=== PATIENT | female | born 1970 | race Caucasian/White ===

== ENCOUNTER 2018-11-04 11:13 | Emergency (ER) | payer BC ==
[2018-11-04 11:18] VITALS: BMI 26.6
[2018-11-04 11:23] VITALS: TEMP 97.1
--- NOTE | 2018-11-04 11:32 | PDOC ---
History of Present Illness <Izaiah Harden - Last Filed: 11/04/18 15:58> - General History Source: Patient Exam Limitations: No Limitations - History of Present Illness Initial Comments: 11/04/18 11:48 48 year old female with PMH GERD, hemorrhoids presented to ED for nausea/ vomiting/diarrhea since 0200 this morning. She stated that she ate She[employer] Pie last, and two other people who ate it have similar symptoms. Pt admitted to sweats/chills, epigastric burning. She stated she has vomited "too numerous times to count" and had diarrhea "too numerous times to count". She admitted to small amount of blood in her diarrhea, which is the same amount she always has with her hemorrhoids. Pt denied recent travel out of the country. Allergies: NKDA <Marina Tillman - Last Filed: 11/04/18 16:10> - General Chief Complaint: Nausea/Vomiting Stated Complaint: Nausea/Vomiting Time Seen by Provider: 11/04/18 11:32 Past History <Izaiah Harden - Last Filed: 11/04/18 15:58> - Past Medical History COPD: No GI Disorders: Yes (GERD) - Suicide/Smoking/Psychosocial Hx Smoking History: Never smoked <Marina Tillman - Last Filed: 11/04/18 16:10> - Past Medical History Allergies/Adverse Reactions: Allergies Allergy/AdvReac Type Severity Reaction Status Date / Time No Known Allergies Allergy Verified 11/04/18 11:15 Home Medications: Ambulatory Orders Famotidine [Pepcid] 40 mg PO DAILY 11/04/18 Naproxen 500 mg PO BID PRN 11/04/18 Ondansetron [Zofran Odt -] 4 mg SL TID #9 od.tablet 11/04/18 Review of Systems - Review of Systems Able to Perform ROS?: Yes Comments:: 11/04/18 12:00 General: denied fever, chills, generalized weakness. HEENT: denied sore throat, rhinorrhea, ear pain. Heart: denied chest pain, palpitations, syncope, diaphoresis. Respiratory: denied shortness of breath, cough, sputum production, hemoptysis. Abdomen: abdominal pain, nausea, vomiting, diarrhea. denied constipation, blood in stool. : denied dysuria, increased urinary frequency, hematuria, urinary incontinence , flank pain. Back: denied back pain. Musculoskeletal: denied joint pain, muscle pain, joint swelling. Neurological: denied headache, dizziness, numbness, tingling, weakness. Skin: denied rash, laceration, abrasion. <PrimoMarina - Last Filed: 11/04/18 16:10> *Physical Exam - Vital Signs Last Vital Signs Temp Pulse Resp BP Pulse Ox 97.1 F L 98 H 18 132/77 100 11/04/18 11:16 11/04/18 15:38 11/04/18 15:38 11/04/18 15:38 11/04/18 11:16 <DereckIzaiah mcfarland - Last Filed: 11/04/18 15:58> - Vital Signs Last Vital Signs Temp Pulse Resp BP Pulse Ox 97.1 F L 81 18 136/70 100 11/04/18 11:16 11/04/18 11:16 11/04/18 11:16 11/04/18 11:16 11/04/18 11:16 - Physical Exam Comments: 11/04/18 12:00 Constitutional: Well-nourished, Well-developed, appearing stated age. HEENT: head is normocephalic, atraumatic. EOMI. PERRLA. Neck: supple. Full ROM. Heart: regular rhythm. no murmurs, rubs or gallops. Lungs: clear to auscultation bilaterally. no crackles, rhonchi or wheezing. no stridor. Abdomen: soft, flat. tenderness to palpation of epigastrium and RUQ. murphys negative. normal bowel sounds. no rebound, guarding, masses. Extremities: peripheral pulses intact. no lower extremity edema. Neurological: CN 2-12 grossly intact. moves all four extremities. Psych: awake, alert, oriented x3. follows commands. answers questions appropriately. <Marina Tillman - Last Filed: 11/04/18 16:10> ED Treatment Course - LABORATORY CBC & Chemistry Diagram: 11/04/18 11:38 11/04/18 11:38 - ADDITIONAL ORDERS Additional order review: Laboratory Results 11/04/18 11/04/18 11:38 11:38 Sodium 140 Potassium 3.7 Chloride 106 Carbon Dioxide 24 Anion Gap 10 BUN 14 Creatinine 0.7 Creat Clearance w eGFR 88.94 Random Glucose 139 H Calcium 9.8 Magnesium 1.9 Total Bilirubin 0.8 AST 19 ALT 30 Alkaline Phosphatase 121 H Total Protein 8.4 H Albumin 4.4 Lipase 131 Serum , Qual Negative 11/04/18 11:38 RBC 4.74 MCV 89.5 MCHC 34.4 RDW 12.5 MPV 8.9 Neutrophils % 88.3 H Lymphocytes % 9.1 Monocytes % 2.3 L Eosinophils % 0.0 Basophils % 0.3 - Medications Given in the ED: ED Medications Discontinued Medications Generic Name Dose Route Start Last Admin Trade Name Waleq PRN Reason Stop Dose Admin Al Hydroxide/Mg Hydroxide 30 ml 11/04/18 13:38 11/04/18 15:23 Mylanta Oral Suspension - PO 11/04/18 13:39 Not Given ONCE ONE Diphenhydramine HCl 25 mg 11/04/18 13:13 11/04/18 13:20 Benadryl Injection - IVPB 11/04/18 13:14 25 mg ONCE ONE Administration Famotidine/Sodium Chloride 20 mg in 50 mls @ 100 mls/hr 11/04/18 11:33 11:55 Pepcid 20 Mg Premixed Ivpb - IVPB 11/04/18 12:02 100 mls/hr ONCE ONE Administration Sodium Chloride 1,000 mls @ 1,000 mls/hr 11/04/18 11:33 11/04/18 11:45 Normal Saline - IV 11/04/18 12:32 1,000 mls/hr ASDIR STA Administration Metoclopramide HCl 10 mg 11/04/18 13:13 11/04/18 13:15 Reglan Injection - IVPB 11/04/18 13:14 10 mg ONCE ONE Administration Ondansetron HCl 4 mg 11/04/18 11:33 11/04/18 12:20 Zofran Injection IVPUSH 11/04/18 11:34 4 mg ONCE ONE Administration Sodium Chloride 1,000 ml 11/04/18 13:13 11/04/18 13:20 Normal Saline - IV 11/04/18 13:14 1,000 ml ONCE ONE Administration <Izaiah Harden - Last Filed: 11/04/18 15:58> - LABORATORY CBC & Chemistry Diagram: 11/04/18 11:38 11/04/18 11:38 <Marina Tillman - Last Filed: 11/04/18 16:10> Medical Decision Making - Medical Decision Making 11/04/18 11:59 48 year old female with above PMH presented to ED for nausea/vomiting/diarrhea/ epigastric pain. Initial Vital Signs Temp Pulse Resp BP Pulse Ox 97.1 F L 81 18 136/70 100 11/04/18 11:16 11/04/18 11:16 11/04/18 11:16 11/04/18 11:16 11/04/18 11:16 Afebrile. No tachycardia. No tachypnea. Mild hypertension. No hypoxia on room air. Labs ordered: CBC, CMP, lipase, mag Imaging ordered: none Medications ordered: pepcid, zofran 4 mg IV, normal saline bolus 1000 cc 11/04/18 12:38 CBC WBC 12.5 K/mm3 (4.0-10.0) H 11/04/18 11:38 RBC 4.74 M/mm3 (3.60-5.2) 11/04/18 11:38 Hgb 14.6 GM/dL (10.7-15.3) 11/04/18 11:38 Hct 42.4 % (32.4-45.2) 11/04/18 11:38 MCV 89.5 fl (80-96) 11/04/18 11:38 MCH 30.8 pg (25.7-33.7) 11/04/18 11:38 MCHC 34.4 g/dl (32.0-36.0) 11/04/18 11:38 RDW 12.5 % (11.6-15.6) 11/04/18 11:38 Plt Count 305 K/MM3 (134-434) 11/04/18 11:38 MPV 8.9 fl (7.5-11.1) 11/04/18 11:38 Absolute Neuts (auto) 11.0 K/mm3 (1.5-8.0) H 11/04/18 11:38 Neutrophils % 88.3 % (42.8-82.8) H 11/04/18 11:38 Lymphocytes % 9.1 % (8-40) 11/04/18 11:38 Monocytes % 2.3 % (3.8-10.2) L 11/04/18 11:38 Eosinophils % 0.0 % (0-4.5) 11/04/18 11:38 Basophils % 0.3 % (0-2.0) 11/04/18 11:38 Nucleated RBC % 0 % (0-0) 11/04/18 11:38 Mild leukocytosis. Left shift. No anemia. CMP Sodium 140 mmol/L (136-145) 11/04/18 11:38 Potassium 3.7 mmol/L (3.5-5.1) 11/04/18 11:38 Chloride 106 mmol/L (98-107) 11/04/18 11:38 Carbon Dioxide 24 mmol/L (21-32) 11/04/18 11:38 Anion Gap 10 MMOL/L (8-16) 11/04/18 11:38 BUN 14 mg/dL (7-18) 11/04/18 11:38 Creatinine 0.7 mg/dL (0.55-1.3) 11/04/18 11:38 Creat Clearance w eGFR 88.94 (>60) 11/04/18 11:38 Random Glucose 139 mg/dL (74-106) H 11/04/18 11:38 Calcium 9.8 mg/dL (8.5-10.1) 11/04/18 11:38 Magnesium 1.9 mg/dL (1.8-2.4) 11/04/18 11:38 Total Bilirubin 0.8 mg/dL (0.2-1) 11/04/18 11:38 AST 19 U/L (15-37) 11/04/18 11:38 ALT 30 U/L (13-61) 11/04/18 11:38 Alkaline Phosphatase 121 U/L (45-117) H 11/04/18 11:38 Total Protein 8.4 g/dl (6.4-8.2) H 11/04/18 11:38 Albumin 4.4 g/dl (3.4-5.0) 11/04/18 11:38 Lipase 131 U/L (73-393) 11/04/18 11:38 Serum , Qual Negative 11/04/18 11:38 No electrolyte abnormalities. No STORM. Mild elevation of ALP. Normal lipase. Serum testing negative. 11/04/18 13:37 Pt reassessed, reported last vomited x30 minutes ago. Pt reported improving epigastric burning. Pt given Benadryl and Reglan. 2nd normal saline 1000 cc bolus given. Pt given PO water challenge. 11/04/18 14:43 Pt failed PO challenge, actively vomiting at bedside. Abdominal examination: soft, nontender. flat. no rebound. Pt has been given three medications for nausea and still vomiting. Pt to be admitted for intractable nausea/vomiting. Labs ordered: influenza A/B 11/04/18 14:52 Hospitalist paged. 11/04/18 15:[address] Ma about the patient, who is to be admitted under observation. Pending admission. 11/04/18 16:01 Pt now tolerating PO. Pt to be discharged. <Marina Tillman - Last Filed: 11/04/18 16:10> *DC/Admit/Observation/Transfer - Discharge Dispostion Decision to Admit order: No <Izaiah Harden - Last Filed: 11/04/18 15:58> - Discharge Dispostion Decision to Admit order: No <Marina Tillman - Last Filed: 11/04/18 16:10> Diagnosis at time of Disposition: Nausea & vomiting Qualifiers: Vomiting type: unspecified Vomiting Intractability: non-intractable Qualified Code(s): R11.2 - Nausea with vomiting, unspecified - Discharge Dispostion Disposition: HOME Condition at time of disposition: Stable - Prescriptions Prescriptions: Ondansetron [Zofran Odt -] 4 mg SL TID #9 od.tablet - Referrals Referrals: Izaiah Fagan MD [Primary Care Provider] - - Patient Instructions Printed Discharge Instructions: DI for Vomiting -- Adult, DI for Gastritis, [place] Diet, GERD Diet Additional Instructions: You were seen today for nausea/vomiting/diarrhea. Your lab work showed a high white blood cell count, most likely from an infection from the food you ate. Follow up with your primary care doctor in 1-2 days to have this number re- checked. Take Tylenol over the counter for your pain. Take as advised on label. I have sent a prescription for Zofran to your pharmacy, pick it up today and take as advised on label. Drink lots of gatorade or pedialyte to stay hydrated and replenish the electrolytes you are losing in the diarrhea and vomit. Eat a bland diet: bread, rice, toast, applesauce, crackers. Advance your diet in 24 hours as tolerated. Foods to avoid that can irritate your stomach: fried foods, spicy foods, caffeine, coffee, tea, chocolate, tomato sauce, pizza, greasy food Medications to avoid that can irritate your stomach: ibuprofen, motrin, aleve, advil Return to the Emergency Department for vomiting despite Zofran use, increasing pain despite Tylenol use, vomiting blood, increasing amount of blood in stool, chest pain, shortness of breath, fever>103F with Tylenol use, fever>5 days or any other new, worsening or concerning symptoms. - Post Discharge Activity Forms/Work/School Notes: Back to Work
[2018-11-04] MEDS ORDERED: ONDANSETRON 4 MG/2 ML VIAL IVPUSH ONE (11:33)
[2018-11-04] MEDS ORDERED: FAMOTIDINE 20 MG/50 ML IVPB 20 MG/50 ML MG IVPB ONE ×2 (11:33→11:58)
[2018-11-04] MEDS ORDERED: SODIUM CHLORIDE 1,000 ML IV STA (11:33)
[2018-11-04] MEDS ORDERED: ONDANSETRON 4 MG/2 ML VIAL ONE (11:58)
[2018-11-04 12:04] LABS: BASO % 0.3 % (0-2.0); HEMATOCRIT 42.4 % (32.4-45.2); HEMOGLOBIN 14.6 GM/dL (10.7-15.3); LYMPH % 9.1 % (8-40); MCH 30.8 pg (25.7-33.7); MCHC 34.4 g/dl (32.0-36.0); MEAN CELL VOLUME 89.5 fl (80-96); MEAN PLT VOLUME 8.9 fl (7.5-11.1); MONO % 2.3 % (3.8-10.2); NEUT % 88.3 % (42.8-82.8); PLATELET COUNT 305 K/MM3 (134-434); RBC 4.74 M/mm3 (3.60-5.2); RDW 12.5 % (11.6-15.6); WHITE BLOOD COUNT 12.5 K/mm3 (4.0-10.0)
[2018-11-04 12:30] LABS: ALBUMIN 4.4 g/dl (3.4-5.0); ALK PHOS 121 U/L (45-117); ANION GAP 10 MMOL/L (8-16); BILIRUBIN,TOTAL 0.8 mg/dL (0.2-1); BLOOD UREA NITROGEN 14 mg/dL (7-18); CALCIUM 9.8 mg/dL (8.5-10.1); CHLORIDE 106 mmol/L (98-107); CO2 24 mmol/L (21-32); CREATININE 0.7 mg/dL (0.55-1.3); GLUCOSE,RANDOM 139 mg/dL (74-106); LIPASE 131 U/L (73-393); MAGNESIUM 1.9 mg/dL (1.8-2.4); POTASSIUM 3.7 mmol/L (3.5-5.1); SGOT/AST 19 U/L (15-37); SGPT/ALT 30 U/L (13-61); SODIUM 140 mmol/L (136-145); TOT PROT 8.4 g/dl (6.4-8.2)
--- NOTE | 2018-11-04 12:59 | PDOC ---
Documentation entered by Stefania Ovalle SCRIBE, acting as scribe for Izaiah Harden MD. Attending Attestation - Resident Resident Name: Marina Tillman - ED Attending Attestation I have performed the following: I have examined & evaluated the patient, The case was reviewed & discussed with the resident, I agree w/resident's findings & plan, Exceptions are as noted - HPI HPI: 11/04/18 12:29 The patient is a 48 year old female with a significant past medical history of GERD and hemorrhoids who presents to the emergency department with an onset of nausea, vomiting, and diarrhea since earlier today. The patient reports that she last ate some shepards pie last night and soon began to experience these symptoms. The patient also reports some diaphoretic episodes as well as epigastric burning sensation. She reports that other persons that ate the same thing have had similar symptoms as well. The patient denies any fever, or urinary symptoms. She denies any chest pain, shortness of breath, headache or dizziness. She denies any other complaints. - Physicial Exam PE: 11/04/18 13:14 Vitals: Triage vital signs reviewed General Appearance: No acute distress, well nourished, well developed Head: Atraumatic Chest Wall: Nontender Cardiac: Regular rate and rhythm, no murmurs, no rubs, no gallops Lungs: Clear to auscultation bilateral, good air movement bilaterally Abdomen: Soft, nondistended, normal bowel sounds, nontender to palpation Extremities: Full range of motion to all extremities, no cyanosis, clubbing, or edema Skin: Warm and dry, no rashes or lesions, no rash, no petechiae Neuro: AOX3; Cranial Nerves 2-12 grossly intact, Strength intact to all extremities, Sensation intact to all extremities, gait normal Psych: Normal mood, normal affect - Medical Decision Making 11/04/18 12:48 The patient is a 48 year old female with a significant past medical history of GERD and hemorrhoids who presents to the emergency department with an onset of nausea, vomiting, and diarrhea since earlier today. The patient will get IV meds for her symptoms and will be further evaluated. 48 years old with nausea vomiting diarrhea multiple episodes. Several people around her of had the same illness Status post IV fluids and antiemetics patient not tolerating fluids by mouth laboratory analysis grossly unremarkable History examination consistent with gastroenteritis Patient still with persistent nausea despite IV fluids episode Zofran Reglan and Benadryl and additional IV fluids ordered Reevaluation 240 Patient failed by mouth challenge still persistently vomiting despite multiple rounds of antiemetics We'll need to observe for IV hydration and further management. Reevaluation 4 PM patient now tolerating fluids by mouth asking to go home past by mouth challenge we'll cancel admission and discharge home we'll give patient note off from work for 2 days and discharge home prescription for Izaiah Leon MD: This documentation has been prepared by the Vasquez landa Collisia, SCRIBE, under my direction and personally reviewed by me in its entirety. I confirm that the documentation accurately reflects all work, treatment, procedures, and medical decision making performed by me.
--- NOTE | 2018-11-04 12:59 | PDOC ---
Documentation entered by Gilma Leigh SCRIBE, acting as scribe for Izaiah Harden MD. Izaiah Harden MD: This documentation has been prepared by the Reese landa Amanda, SCRIBE, under my direction and personally reviewed by me in its entirety. I confirm that the documentation accurately reflects all work, treatment, procedures, and medical decision making performed by me. Attending Attestation - Resident Resident Name: Marina Tillman - ED Attending Attestation I have performed the following: I have examined & evaluated the patient, The case was reviewed & discussed with the resident, I agree w/resident's findings & plan, Exceptions are as noted - HPI HPI: 11/07/18 15:52 Canceled see other chart - Physicial Exam PE: 11/07/18 15:52 Canceled see other chart - Medical Decision Making 11/07/18 15:52 Canceled see other chart
[2018-11-04] MEDS ORDERED: METOCLOPRAMIDE HCL INJECTION 10 MG/2 ML VIAL IVPB ONE (13:13)
[2018-11-04] MEDS ORDERED: SODIUM CHLORIDE 0.9% 1000 ML INFUS.BAG IV ONE (13:13)
[2018-11-04] MEDS ORDERED: METOCLOPRAMIDE HCL INJECTION 10 MG/2 ML VIAL ONE (13:20)
[2018-11-04] MEDS ORDERED: MAG HYDROX/AL HYDROX/SIMETH 30 ML UNIT-DOSE CUP PO ONE (13:38)
[2018-11-04 15:22] LABS: EPI CELLS 0.8 /HPF (0-5/HPF); PH,URINE 8.5 (5.0-8.0); URINE APPEARANCE CLOUDY; URINE BACTERIA 21.8 /hpf (NEGATIVE); URINE BILIRUBIN NEGATIVE (NEGATIVE); URINE CASTS 0 /lpf (0-8); URINE COLOR YELLOW; URINE GLUCOSE (UA) NEGATIVE (NEGATIVE); URINE KETONE 2+ (NEGATIVE); URINE LEUK ESTERASE NEGATIVE (NEGATIVE); URINE NITRITE NEGATIVE (NEGATIVE); URINE PROTEIN NEGATIVE (NEGATIVE); URINE RBC 7 /hpf (0-4); URINE UROBILINOGEN 0.2 mg/dL (0.2-1.0); URINE WBC 0 /hpf (0-5)
--- NOTE | 2018-11-04 15:27 | PN ---
Teaching Attending Note Name of Resident: Alma Gomez ATTENDING PHYSICIAN STATEMENT I saw and evaluated the patient. I reviewed the resident's note and discussed the case with the resident. I agree with the resident's findings and plan as documented with exceptions below. SUBJECTIVE: 48 yof with PMhx of GERD, haemorrhoids, was in her USOH till around 230 AM today when had sudden onset of vomiting and diarrhea. reports multiple episodes of ovmiting, initially food, then bilious non bloody, last 15 min ago in the ED. Also multiple scant watery stools, initially non bloody later with some BRBPR with blood on wipes. No diarrhea since in the hospital. Subjective chills but no fevers. Also c/o epigastric soreness that started after vomiting episodes otherwise no abdominal pain. Had galindo pie/rice/meatballs around 6 pm yesterday. No sick contacts, recent antibiotics or travel. Has long standing h/o GERD, and is advised outpatient GI follow up for EGD. Occasional Naproxen for abdominal cramps. Colonoscopy 1 year ago and intermittent BRPBR from her haemorrhoids. s/p reglan/famotidine/benadryl/Maalox in the ED. Symptoms improved, though ongoing vomiting and inablity to tolerate PO 12 point ROS done, neg except above. OBJECTIVE: Vital Signs Period Temp Pulse Resp BP Sys/Mcleod Pulse Ox Last 24 Hr 97.1 F 81 18 136/70 100 Intake & Output 11/01/18 11/02/18 11/03/18 11/04/18 23:59 23:59 23:59 23:59 Intake Total 1000 Balance 1000 Weight 160 lb GENERAL: Awake, alert, and fully oriented, in no acute distress. HEAD: Normal with no signs of trauma. EYES: Pupils equal, round and reactive to light, extraocular movements intact, sclera anicteric, conjunctiva clear. No lid lag. EARS, NOSE, THROAT: Ears normal, nares patent, oropharynx clear without exudates. Mildly dry skin and mucous membrane NECK: Normal range of motion, supple, no JVD LUNGS: Breath sounds equal, clear to auscultation bilaterally. No wheezes, and no crackles. No accessory muscle use. HEART: Regular rate and rhythm, normal S1 and S2 ABDOMEN: Soft, nontender throughout, no epigastric tenderness, not distended, normoactive bowel sounds, no guarding, no rebound, no masses. No hepatomegaly or splenomegaly appreciated. MUSCULOSKELETAL: Normal range of motion at all joints. No bony deformities or tenderness. No CVA tenderness. UPPER EXTREMITIES: 2+ pulses, warm, well-perfused. No cyanosis. No clubbing. No peripheral edema. LOWER EXTREMITIES: 2+ pulses, warm, well-perfused. No calf tenderness. No peripheral edema. NEUROLOGICAL: AAOx3, power 5/5, facial symmetry, tongue midlline, EOMI, Cranial nerves II-XII intact. Normal speech. Gait not observed PSYCHIATRIC: Cooperative. Good eye contact. Appropriate mood and affect. SKIN: Warm, dry, normal turgor, no rashes or lesions noted, normal capillary refill. Rectal: visible external haemorrhoids, mucoid stool law-rectal region, no gross blood, or active bleed from haemorrhoids Home Medications Medication Instructions Recorded Famotidine [Pepcid] 40 mg PO DAILY 11/04/18 Naproxen 500 mg PO BID PRN 11/04/18 Laboratory Results - last 24 hr 11/04/18 11/04/18 11/04/18 11:38 11:38 11:38 WBC 12.5 H RBC 4.74 Hgb 14.6 Hct 42.4 MCV 89.5 MCH 30.8 MCHC 34.4 RDW 12.5 Plt Count 305 MPV 8.9 Absolute Neuts (auto) 11.0 H Neutrophils % 88.3 H Lymphocytes % 9.1 Monocytes % 2.3 L Eosinophils % 0.0 Basophils % 0.3 Nucleated RBC % 0 Sodium 140 Potassium 3.7 Chloride 106 Carbon Dioxide 24 Anion Gap 10 BUN 14 Creatinine 0.7 Creat Clearance w eGFR 88.94 Random Glucose 139 H Calcium 9.8 Magnesium 1.9 Total Bilirubin 0.8 AST 19 ALT 30 Alkaline Phosphatase 121 H Total Protein 8.4 H Albumin 4.4 Lipase 131 Serum , Qual Negative Urine Color Urine Appearance Urine pH Ur Specific [place] Urine Protein Urine Glucose (UA) Urine Ketones Urine Blood Urine Nitrite Urine Bilirubin Urine Urobilinogen Ur Leukocyte Esterase Urine WBC (Auto) Urine RBC (Auto) Urine Casts (Auto) U Epithel Cells (Auto) Urine Bacteria (Auto) Influenza A (Rapid) Influenza B (Rapid) 04/16/19 04/16/19 14:32 15:01 WBC RBC Hgb Hct MCV MCH MCHC RDW Plt Count MPV Absolute Neuts (auto) Neutrophils % Lymphocytes % Monocytes % Eosinophils % Basophils % Nucleated RBC % Sodium Potassium Chloride Carbon Dioxide Anion Gap BUN Creatinine Creat Clearance w eGFR Random Glucose Calcium Magnesium Total Bilirubin AST ALT Alkaline Phosphatase Total Protein Albumin Lipase Serum , Qual Urine Color Yellow Urine Appearance Cloudy Urine pH 8.5 H Ur Specific [place] 1.019 Urine Protein Negative Urine Glucose (UA) Negative Urine Ketones 2+ H Urine Blood Trace Urine Nitrite Negative Urine Bilirubin Negative Urine Urobilinogen 0.2 Ur Leukocyte Esterase Negative Urine WBC (Auto) 0 Urine RBC (Auto) 7 Urine Casts (Auto) 0 U Epithel Cells (Auto) 0.8 Urine Bacteria (Auto) 21.8 Influenza A (Rapid) Negative Influenza B (Rapid) Negative ASSESSMENT AND PLAN: 48 yof with GERD, haemorrhoids, admitted with vomiting, diarrhea and BRBPR scant that followed diarrhea. -Nausea, vomiting, suspect food poisoning vs viral gastroenteritis given self- limiting course and already improved -Hematochezia, scant, followed diarrheas, suspect haemorrhoidal in the setting of diarrhea -GERD Plan: Clinically improved. Afebrile, benign abdominal exam. Supportive care IVF, zofran, PPI IV BID, maalox prn. Anusol cream/sitz baths. Monitor h/h. Stool studies if significant or persistent diarrhea. Hold off on abx. Readdress if fevers, ongoing bloody diarrhea, abdominal pain or new clinical concerns. PO clears, advance as tolerated Drug screen Routine EKG [id number], low risk, also given concerns of haemorrhoidal bleed, Dispo admit to obs, d/c in 24 hours if symptoms improved, tolerating diet and no new concerns. Plan discussed with patient in detail, all questions answered. Care co-ordinated with ED. Total admit time 55 min.
--- NOTE | 2018-11-04 16:33 | CONSULT ---
Consultation: REQUESTING PROVIDER: Dr Harden CONSULT REQUEST: We have been asked to medically evaluate this patient for uncontrollable nausea and vomiting/diarrhea. HISTORY OF PRESENT ILLNESS: The patient is a 48 year old female with a PMH of GERD, hemorrhoids,that presented to the hospital complaining of nausea, NBNB vomiting and watery diarrhea since 1:30 last night. She states that yesterday she had [employer] for lunch and meat balls in the evening. Her friend who ate the same also had similar symptoms. It was associated with chills.The patient states that she vomited so many times that became weak and doesn't even recall EMS coming to her house. Since she came to ED, her symptoms persisted. She admitted to small amount of blood in her diarrhea, but she attributes that to hemorrhoids, only with wiping. Pt denied recent travel out of the country, sick contacts. She denies abdominal pain, muscle pain, SOB, chest pain. REVIEW OF SYSTEMS: CONSTITUTIONAL: loss of appetite,chills, diaphoresis, generalized weakness, malaise, Absent: fever, weight change HEENT: Absent: rhinorrhea, nasal congestion, throat pain, throat swelling, CARDIOVASCULAR: Absent: chest pain, syncope, palpitations, irregular heart rate, lightheadedness , peripheral edema RESPIRATORY: Absent: cough, shortness of breath, dyspnea with exertion, orthopnea, wheezing, stridor, hemoptysis GASTROINTESTINAL: nausea, vomiting, diarrhea, Absent: abdominal pain, abdominal distension, constipation GENITOURINARY: Absent: dysuria, frequency, urgency, hesitancy, hematuria, flank pain, genital pain MUSCULOSKELETAL: Absent: myalgia, arthralgia, joint swelling, back pain, neck pain NEUROLOGIC: Absent: headache, focal weakness or paresthesias, dizziness, unsteady gait, seizure PSYCHIATRIC: Absent: anxiety, depression PHYSICAL EXAMINATION Vital Signs - 24 hr 11/04/18 11/04/18 11:16 15:38 Temperature 97.1 F L Pulse Rate 81 Pulse Rate [ 98 H Right Radial] Respiratory 18 18 Rate Blood Pressure 136/70 Blood Pressure 132/77 [Right Arm] O2 Sat by Pulse 100 Oximetry (%) GENERAL: Awake, alert, and fully oriented, in no acute distress. HEAD: Normal with no signs of trauma. EYES: Pupils equal, round and reactive to light, extraocular movements intact. EARS, NOSE, THROAT: Moist mucous membranes. NECK: Normal range of motion, supple without lymphadenopathy. LUNGS: Breath sounds equal, clear to auscultation bilaterally. No wheezes, and no crackles. HEART: Regular rate and rhythm, normal S1 and S2 without murmur, rub or gallop, breast augmentation. ABDOMEN: Soft, nontender, not distended, normoactive bowel sounds, no guarding. MUSCULOSKELETAL: Normal range of motion at all joints. No bony deformities or tenderness. UPPER EXTREMITIES: No peripheral edema. LOWER EXTREMITIES: 2+ pulses, warm. No peripheral edema. NEUROLOGICAL: Normal speech, no facial asymmetry. PSYCHIATRIC: Cooperative. Good eye contact. Appropriate mood and affect. SKIN: Warm, dry, normal turgor, no rashes, ttoo on left arm. Laboratory Results - last 24 hr 11/04/18 11/04/18 11/04/18 11:38 11:38 11:38 WBC 12.5 H RBC 4.74 Hgb 14.6 Hct 42.4 MCV 89.5 MCH 30.8 MCHC 34.4 RDW 12.5 Plt Count 305 MPV 8.9 Absolute Neuts (auto) 11.0 H Neutrophils % 88.3 H Lymphocytes % 9.1 Monocytes % 2.3 L Eosinophils % 0.0 Basophils % 0.3 Nucleated RBC % 0 Sodium 140 Potassium 3.7 Chloride 106 Carbon Dioxide 24 Anion Gap 10 BUN 14 Creatinine 0.7 Creat Clearance w eGFR 88.94 Random Glucose 139 H Calcium 9.8 Magnesium 1.9 Total Bilirubin 0.8 AST 19 ALT 30 Alkaline Phosphatase 121 H Total Protein 8.4 H Albumin 4.4 Lipase 131 Serum , Qual Negative Urine Color Urine Appearance Urine pH Ur Specific [place] Urine Protein Urine Glucose (UA) Urine Ketones Urine Blood Urine Nitrite Urine Bilirubin Urine Urobilinogen Ur Leukocyte Esterase Urine WBC (Auto) Urine RBC (Auto) Urine Casts (Auto) U Epithel Cells (Auto) Urine Bacteria (Auto) Influenza A (Rapid) Influenza B (Rapid) 11/04/18 11/04/18 14:32 15:01 WBC RBC Hgb Hct MCV MCH MCHC RDW Plt Count MPV Absolute Neuts (auto) Neutrophils % Lymphocytes % Monocytes % Eosinophils % Basophils % Nucleated RBC % Sodium Potassium Chloride Carbon Dioxide Anion Gap BUN Creatinine Creat Clearance w eGFR Random Glucose Calcium Magnesium Total Bilirubin AST ALT Alkaline Phosphatase Total Protein Albumin Lipase Serum , Qual Urine Color Yellow Urine Appearance Cloudy Urine pH 8.5 H Ur Specific [place] 1.019 Urine Protein Negative Urine Glucose (UA) Negative Urine Ketones 2+ H Urine Blood Trace Urine Nitrite Negative Urine Bilirubin Negative Urine Urobilinogen 0.2 Ur Leukocyte Esterase Negative Urine WBC (Auto) 0 Urine RBC (Auto) 7 Urine Casts (Auto) 0 U Epithel Cells (Auto) 0.8 Urine Bacteria (Auto) 21.8 Influenza A (Rapid) Negative Influenza B (Rapid) Negative Active Medications Generic Name Dose Route Start Last Admin Trade Name Kayla PRN Reason Stop Dose Admin Hydrocortisone 1 applic 11/04/18 22:00 Anusol 2.5% Hc Cream - TP BID [place] Pantoprazole Sodium 40 mg 11/04/18 22:00 Protonix Iv IVPUSH BID [place] ASSESSMENT/PLAN: The patient is a 48 year old female with a PMH of GERD, hemorrhoids,that presented to the hospital complaining of nausea, NBNB vomiting and watery diarrhea since 1:30 last night. Hospitalist team was consulted for uncontrollable nausea, vomiting, diarrhea. The patient was treated in ED with antimetics, fluids. She clinically improved, tolerated oral intake, discharged from home. Consultation was cancelled. Dispo: We will continue to follow the patient. Thank you for this consultative opportunity. Problem List - Problems (1) Nausea & vomiting Code(s): R11.2 - NAUSEA WITH VOMITING, UNSPECIFIED Qualifiers: Vomiting type: unspecified Vomiting Intractability: non-intractable Qualified Code(s): R11.2 - Nausea with vomiting, unspecified Visit type - Emergency Visit Emergency Visit: Yes Care time: The patient presented to the Emergency Department on the above date and was hospitalized for further evaluation of their emergent condition. - New Patient This patient is new to me today: Yes Date on this admission: 11/04/18 - Critical Care Critical Care patient: No
[2018-11-04 16:41] LABS: COCAINE, UR NEGATIVE ng/ml (CUTOFF=300); METHADONE, UR NEGATIVE ng/ml (CUTOFF=300); OPIATES, URI NEGATIVE ng/ml (CUTOFF=300); PHENCYCLIDINE,URINE NEGATIVE ng/ml (CUTOFF=25); URINE AMPHETAMINES NEGATIVE ng/ml (CUTOFF=500); URINE BARBITURATES NEGATIVE ng/ml (CUTOFF=200); URINE BENZODIAZEPINES NEGATIVE ng/ml (CUTOFF=200)
[2018-11-04 17:34] VITALS: BP 115/60; PULSE 100
[2018-11-04] MEDS ORDERED: PANTOPRAZOLE SODIUM 40 MG VIAL IVPUSH SCH (22:00)
[2018-11-04] MEDS ORDERED: HYDROCORTISONE 2.5% TOPICAL CREAM 30 GM TUBE TP SCH (22:00)
--- NOTE | 2018-11-05 12:28 | EKG ---
Test Reason : Blood Pressure : / mmHG Vent. Rate : 095 BPM Atrial Rate : 095 BPM P-R Int : 142 ms QRS Dur : 084 ms QT Int : 394 ms P-R-T Axes : 067 051 056 degrees QTc Int : 495 ms NORMAL SINUS RHYTHM POSSIBLE LEFT ATRIAL ENLARGEMENT PROLONGED QT ABNORMAL ECG NO PREVIOUS ECGS AVAILABLE Confirmed by HALLIE BURNS MD ([id number]) on 11/05/2018 12:27:50 PM Referred By: Confirmed By:HALLIE BURNS MD
== END 2018-11-04 17:43 | disposition home or self-care (01) ==
LOC: JER 11:13 → UNDOADMOB 14:45 → JERBED 14:45 → JER 17:43
PROC: 3E033GC Introduction of Other Therapeutic Substance into Peripheral Vein, Percutaneous Approach (ICD-10-PCS; principal; 2018-11-04)
PROC: 3E0337Z Introduction of Electrolytic and Water Balance Substance into Peripheral Vein, Percutaneous Approach (ICD-10-PCS; 2018-11-04)
PROC: 3E033GC Introduction of Other Therapeutic Substance into Peripheral Vein, Percutaneous Approach (ICD-10-PCS; 2018-11-04)
PROC: 3E033GC Introduction of Other Therapeutic Substance into Peripheral Vein, Percutaneous Approach (ICD-10-PCS; 2018-11-04)
PROC: 3E033GC Introduction of Other Therapeutic Substance into Peripheral Vein, Percutaneous Approach (ICD-10-PCS; 2018-11-04)
DX: R11.2 Nausea with vomiting, unspecified (principal); K21.9 Gastro-esophageal reflux disease without esophagitis
CPT/HCPCS: 36415; 80053; 80307; 81003; 83690; 83735; 84703; 85025; 87086; 87804; 93005; 93010; 99282-25; J7030

== ENCOUNTER 2020-08-06 14:00 | Emergency (ER) | payer OTHER, BC ==
[2020-08-06 14:35] VITALS: PULSE 113; TEMP 98.5; BMI 26.6
[2020-08-06] MEDS ORDERED: SODIUM CHLORIDE 1,000 ML IV STA (15:52)
[2020-08-06] MEDS ORDERED: ONDANSETRON 4 MG/2 ML VIAL IVPUSH ONE (15:52)
[2020-08-06] MEDS ORDERED: ACETAMINOPHEN 1000 MG/100 ML VIAL (NON FORMULARY) IVPB ONE (15:52)
[2020-08-06] MEDS ORDERED: ACETAMINOPHEN INJECTION 100 ML IVPB ONE (16:04)
[2020-08-06] MEDS ORDERED: ONDANSETRON 4 MG/2 ML VIAL ONE (16:04)
[2020-08-06 16:50] LABS: BASO % 0.3 % (0-2.0); HEMATOCRIT 41.8 % (32.4-45.2); HEMOGLOBIN 14.1 GM/dL (10.7-15.3); MCH 30.1 pg (25.7-33.7); MCHC 33.7 g/dl (32.0-36.0); MEAN CELL VOLUME 89.4 fl (80-96); MEAN PLT VOLUME 9.2 fl (7.5-11.1); MONO % 3.9 % (3.8-10.2); NEUT % 84.8 % (42.8-82.8); PLATELET COUNT 320 K/MM3 (134-434); RBC 4.67 M/mm3 (3.60-5.2); RDW 12.7 % (11.6-15.6); WHITE BLOOD COUNT 13.4 K/mm3 (4.0-10.0)
[2020-08-06 17:07] LABS: POTASSIUM 3.8 mmol/L (3.5-5.1)
[2020-08-06 17:08] LABS: CALCIUM 9.4 mg/dL (8.5-10.1)
[2020-08-06 17:12] LABS: CREATININE 0.8 mg/dL (0.55-1.3)
[2020-08-06 17:13] LABS: BILIRUBIN,TOTAL 1.4 mg/dL (0.2-1); TOT PROT 8.2 g/dl (6.4-8.2)
[2020-08-06 17:59] LABS: EPI CELLS 11 /uL (0-25.1); HYALINE CASTS 1 /uL (0-3.1); URINE APPEARANCE CLEAR; URINE BACTERIA 1765 /uL (0-1359); URINE BILIRUBIN NEGATIVE (NEGATIVE); URINE COLOR YELLOW; URINE GLUCOSE (UA) NEGATIVE (NEGATIVE); URINE KETONE NEGATIVE (NEGATIVE); URINE LEUK ESTERASE NEGATIVE (NEGATIVE); URINE NITRITE NEGATIVE (NEGATIVE); URINE PROTEIN NEGATIVE (NEGATIVE); URINE RBC 86 /uL (0-23.9); URINE UROBILINOGEN 0.2 mg/dL (0.2-1.0); URINE WBC 8 /uL (0-25.8)
[2020-08-06 18:43] VITALS: BP 151/71
== END 2020-08-06 18:50 | disposition home or self-care (01) ==
LOC: JER 14:00
PROC: 3E033NZ Introduction of Analgesics, Hypnotics, Sedatives into Peripheral Vein, Percutaneous Approach (ICD-10-PCS; principal; 2020-08-06)
PROC: 3E033GC Introduction of Other Therapeutic Substance into Peripheral Vein, Percutaneous Approach (ICD-10-PCS; 2020-08-06)
PROC: 3E0337Z Introduction of Electrolytic and Water Balance Substance into Peripheral Vein, Percutaneous Approach (ICD-10-PCS; 2020-08-06)
DX: R10.9 Unspecified abdominal pain (principal); R11.2 Nausea with vomiting, unspecified
CPT/HCPCS: 36415; 80053; 81003; 83690; 85025; 99285-25; J0131